=== PATIENT | female | born 1985 | race Caucasian/White ===

== ENCOUNTER 2022-05-19 20:19 | Inpatient (IN) ==
[2022-05-19] MEDS ORDERED: ACETAMINOPHEN 500 MG TAB PO STA (20:49)
[2022-05-19] MEDS ORDERED: SODIUM CHLORIDE 0.9% 1000ML 1,000 ML IV SCH (21:00)
[2022-05-19] MEDS ORDERED: LIDOCAINE 2% JELLY 5 ML TUBE ONE (21:10)
--- NOTE | 2022-05-19 21:11 | Emergency Department Note ---
Impression & Plan Elevated bilirubin, Elevated LFTs, Weakness, Fever, Thrombocytopenia, Breast cancer in female, Hyponatremia ED Provider Note Provider: Jag Peña MD DATE OF SERVICE: 05/19/2022 CHIEF COMPLAINT: Referred by oncology, abnormal labs, cancer HISTORY OF PRESENT ILLNESS: Patient is a 37-year-old female history of breast cancer currently on chemotherapy followed with oncology locally presenting today referred by them. Patient states that she has been having a fairly rough course the last several weeks. Has been having intermittent fevers are sometimes prickly related to the cancer treatments. Has been on a break for a week or 2 with spouse to have the start of another round of chemotherapy treatments today. Went in for blood work at the noted some abnormalities with low platelets, magnesium, and liver function/bilirubin and deferred this. Given his magnesium and Zofran earlier. Had an abdominal ultrasound earlier. Called her oncologist referred here. States she had some intermittent episodes of nausea and vomiting. She states he felt a little bit fuzzy but denies significant chest pain or trouble breathing. Reports some pain at the right lower rib cage of the right upper quadrant of the abdomen. Does express some concern regarding possible hemangioma seen on the ultrasound today if they could resume cancer. Reports some pain at times in the hips and the low back as well. Denies rashes or leg swelling. Denies trauma. REVIEW OF SYSTEMS: A total of 10 review of systems was obtained and negative except as stated above in the HPI. PAST MEDICAL HISTORY: As noted above MEDICATIONS: Reviewed home medication list SOCIAL HISTORY: Lives at home in [place] PHYSICAL EXAM: GENERAL: alert and oriented in no acute distress on stretcher however quite fatigued appearing Head: normocephalic and atraumatic EYES: No injection or discharge but with icterus. NECK: Trachea midline. Supple. ENT: Mucous membranes pink and moist. LUNGS: Airway patent. No retractions. Breath sounds clear HEART: Regular tachycardic rate and rhythm. Right upper chest port in place. ABDOMEN: Soft with some slight right upper quadrant tenderness. No lower abdominal tenderness. No guarding. SKIN: Acyanotic, warm, dry, without rashes but somewhat jaundiced EXTREMITIES: Without swelling, tenderness or deformity NEUROLOGICAL: No focal deficits. No aphasia. No facial droop or slurred speech. Ambulatory. EK bpm sinus tachycardia. No PVC or PAC. No acute ST segment elevation some nonspecific anterior T wave changes. QTc 415. CONTINUOUS CARDIAC MONITORING: was ordered and showed a heart rate of sinus tachycardia to NSR bpm in 80s-120s Patient's laboratory studies and imaging reviewed. Differential includes Infection, dehydration, metabolic abnormality, hyp o/hyperglycemia, electrolyte disturbance, anemia, hypoxia, cardiac sources, intracerebral event, toxicologic, neurologic, as well as other pathologies. IMPRESSION/MEDICAL DECISION MAKING: Patient with complex history of cancer therapy but last several weeks ago with chemo with intermittent fevers and nausea and vomiting with some right upper quadrant chest pain. Discussed with patient at bedside. Discussed with her oncologist upon arrival to findings that she was referred. Repeat blood work and cultures were sent today. Urine sample was sent. Given her fevers and vomiting we will complete a head CT to exclude any obvious central mass on this as well as a CT of the chest to exclude PE or other thoracic pathology as well as a CT abdomen pelvis to evaluate for intra-abdominal, pelvic, or or other metastatic disease or possible etiology for her elevated bilirubin symptoms. Given some Tylenol and IV fluids here initially. Blood work here with some mild hyponatremia of 130. As well as a continued increase in bilirubin to 4.5. AST ALT and alkaline phosphatase continue to trend somewhat higher. Procalcitonin elevated 5.27. Urinalysis not impressive for infection. Question possible infection. COVID-negative. Anaplasmosis smear ordered and not indicated. CT reports were reviewed. Not having symptoms consistent with acute appendicitis. No clear metastatic disease although there is some lymph nodes noted here by radiology reports as below. Will cover empirically with Zosyn at this time. Cannot positively exclude that she could have a biliary infection/cholangitis developing. Given the changes of her labs over the course of the day with her history of cancer with recent chemotherapy, fevers, tachycardia, and elevated procalcitonin feel that further care here at the hospital is indicated. Fever has improved with Tylenol here to 98.1 F orally. Patient and friend updated at bedside. DIAGNOSIS: Breast cancer, elevated bilirubin, hyponatremia, weakness, thrombocytopenia DISPOSITION: Hospitalist will evaluate Patient was agreeable with this plan. Preliminary Findings Only See Final Report For Complete Findings CT ABDOMEN & PELVIS With Contrast: Findings concerning for hepatic steatosis. Splenomegaly. The gallbladder decompressed. The common bile duct is normal. No evidence of pancreatitis. The adrenal glands are unremarkable. No evidence of hydronephrosis or urinary calculi. The appendix is prominent measuring 10.8 mm in maximal diameter with mild inflammation of the surrounding fat. Recommend correlation with right lower quadrant pain. There is a small amount of free fluid in pelvic cul-de-sac. There is a 34 x 32 mm left ovarian cyst. No evidence of free air, free fluid or colitis. No evidence of bony lesions. Prominence bilateral inguinal lymph nodes. No comparisons. Radiologist: Laine Basurto MD Study ready at 00:27 and initial results transmitted at 00:38 Preliminary Findings Only See Final Report For Complete Findings CTA CHEST: No evidence of pulmonary emboli. Prominent bilateral axillary lymph nodes. There is a right IJ approach central venous catheter in place the distal tip in the right atrium. There numerous shotty mediastinal periaortic lymph nodes. The lungs are clear. No evidence of bony lesions. Splenomegaly. Hepatic steatosis. No comparisons. Radiologist: Laine Basurto MD Study ready at 00:37 and initial results transmitted at 00:41 Preliminary Findings Only See Final Report For Complete Findings CT HEAD: No evidence of acute intracranial pathology. Cerebellar tonsillar ectopia. No evidence of bony lesions. Left maxillary sinus retention cyst. No comparisons. Radiologist: Laine Basurto MD Study ready at 00:19 and initial results transmitted at 00:44 Past Med/Surg History Medical History (Updated 05/20/22 @ 01:42 by Jag Peña M.D.) COVID-19 virus infection Family history of breast cancer Lower extremity surgery planned Family History (Updated 10/30/21 @ 15:04 by MAO Garner) Aunt Breast cancer Grandmother (Maternal) Diabetes Grandmother (Paternal) Diabetes Mother Hypertension Father Hypertension Grandfather (Paternal) Myocardial infarction Uncle Alcohol abuse Sister Alcohol abuse Denies family history of Ovarian cancer Prostate cancer Colorectal cancer Social History (Updated 10/30/21 @ 15:06 by MAO Garner) Smoking Status: Never smoker Second Hand Exposure: No; Hx Alcohol Use: Yes Alcohol type: beer Alcohol Intake Frequency: 4 or More x per/Week Hx Substance Use: No marital status: Single Current Living Situation: Alone Current Living Situation Comment: LIVES WITH DOG Feels Safe at Home: Yes Childhood Exposure to Second-Hand Smoke: No caffeine: Yes (COFFEE AND RED BULL ) Dental Care, Regularly: No Physical Activity Frequency: 3-4 Times per Week Physical Activity Frequency Comment: REALLY PHYSICAL Seatbelt Use: always Sunscreen Use: Yes Allergies Allergies Allergy/AdvReac Type Severity Reaction Status Date / Time bee pollen Allergy Intermediate Verified 10/30/21 14:58 cat dander Allergy Mild Verified 10/30/21 14:58 Home Meds Previous Rx's Medication Instructions Recorded epinephrine 0.3 mg/0.3 mL 0.3 mg (0.3 mL) IM Q4H PRN 12/02/21 injection, auto-injector (EpiPen anaphylaxis #1 ea 2-Timmy) Results & Data (ED) Vital Signs Vital Signs - 24 hr 05/19/22 20:27 05/19/22 22:00 05/19/22 22:00 Temperature 39.1 C H Temperature Source Temporal Artery Scan Pulse Rate 120 H Pulse Rate [Apical] 111 H Respiratory Rate 18 19 Respiratory Effort / Characteristics Non-Labored Spontaneous Non-Labored Spontaneous Respiratory Depth Normal Normal Blood Pressure 104/61 Blood Pressure [Right Arm] 109/60 Blood Pressure Mean 75 Blood Pressure Mean [Right Arm] 76 Pulse Oximetry 96 98 97 Oxygen Delivery Method Room Air Room Air Room Air Sepsis Recent Fever Within 48 Hours No Sepsis New/Unexplained Change in Mental Status No Sepsis Action Taken by Nursing Physician Notified 05/20/22 00:19 Temperature Temperature Source Pulse Rate Pulse Rate [Apical] 90 Respiratory Rate 18 Respiratory Effort / Characteristics Non-Labored Spontaneous Respiratory Depth Normal Blood Pressure Blood Pressure [Right Arm] 101/59 L Blood Pressure Mean Blood Pressure Mean [Right Arm] 73 Pulse Oximetry 97 Oxygen Delivery Method Room Air Sepsis Recent Fever Within 48 Hours Sepsis New/Unexplained Change in Mental Status Sepsis Action Taken by Nursing Laboratory Data Result diagrams: 05/19/22 21:50 05/19/22 21:50 Lab Results 05/19/22 05/19/22 05/19/22 Range/Units 00:30 21:11 21:50 WBC 4.82 (4.8-10.8) K/ul RBC 3.15 L (3.93-5.22) M/uL Hgb 10.2 L (12.0-16.0) g/dl Hct 29.2 L (34.1-44.9) % MCV 92.7 (80.0-100.0) fL MCH 32.4 (25.0-34.0) pg MCHC 34.9 (32.0-36.0) g/dL RDW Std Deviation 46.0 (36.4-46.3) fL RDW Coeff of Charly 13.7 (11.5-14.5) % Plt Count 54 L (130-400) K/uL MPV 10.8 (9.4-12.3) fL Immature Gran % (Auto) 3.9 % Neut % (Auto) 79.3 % Lymph % (Auto) 13.9 % Centre % (Auto) 2.7 % Eos % (Auto) 0.0 % Baso % (Auto) 0.2 % Neut # (Auto) 3.82 (1.4-6.5) K/uL Lymph # (Auto) 0.67 L (1.2-3.4) K/uL Centre # (Auto) 0.13 L (0.24-0.82) K/uL Eos # (Auto) 0.00 (0-0.50) K/uL Baso # (Auto) 0.01 (0-0.2) K/uL Immature Gran # (Auto) 0.19 H (0.00-0.02) K/uL Platelet Estimate Decreased L (Normal) PT (9.0-12.0) Seconds INR (0.9-1.1) Sodium (136-145) mmol/L Potassium (3.5-5.1) mmol/L Chloride (98-107) mmol/L Carbon Dioxide (21-32) mmol/L Anion Gap (3-11) BUN (6-23) mg/dl Creatinine (0.6-1.2) mg/dl Est Cr Clr Drug Dosing ml/min Est GFR ( Amer) ml/min Est GFR (Non-Af Amer) ml/min BUN/Creatinine Ratio (10-20) Glucose (70-99(Fasting)) mg/dl Lactate (0.4-2.0) mmol/L Calcium (8.5-10.1) mg/dl Magnesium (1.7-2.4) mg/dl Total Bilirubin (0.2-1.0) mg/dl AST (13-39) U/L ALT (7-52) U/L Alkaline Phosphatase (34-104) U/L Troponin I High Sens (0-14) pg/ml Total Protein (6.0-8.3) gm/dl Albumin (3.4-5.0) gm/dl Globulin (2.5-4.0) gm/dl Albumin/Globulin Ratio (0.9-2) Lipase (11-82) U/L Procalcitonin (0-0.5) ng/ml TSH (0.300-4.500) uIu/ml Free T4 (0.61-1.60) ng/dl Urine Color Dark Yellow Urine Appearance Clear (Clear) Urine pH 5.0 (4.5-7.5) Ur Specific [place] 1.020 (1.000-1.030) Urine Protein Trace H (Negative) Urine Glucose (UA) Negative (Negative) Urine Ketones Trace H (Negative) Urine Blood Negative (Negative) Urine Nitrite Negative (Negative) Urine Bilirubin 1+ H (Negative) Urine Urobilinogen Negative (Negative) Ur Leukocyte Esterase Trace H (Negative) Urine WBC (Auto) 1-5 (0-5) /hpf Urine RBC (Auto) 0-4 (0-4) /hpf U Hyaline Cast (Auto) 1-5 (0-5) /lpf U Epithel Cells (Auto) 20-30 H (0-5) /lpf Urine Bacteria (Auto) Negative (Negative) Anaplasma Smear See Comment Babesia Smear See Comment SARS-CoV-2, RNA, NAAT (NEGATIVE) 05/19/22 05/19/22 05/19/22 Range/Units 21:50 21:50 21:50 WBC (4.8-10.8) K/ul RBC (3.93-5.22) M/uL Hgb (12.0-16.0) g/dl Hct (34.1-44.9) % MCV (80.0-100.0) fL MCH (25.0-34.0) pg MCHC (32.0-36.0) g/dL RDW Std Deviation (36.4-46.3) fL RDW Coeff of Charly (11.5-14.5) % Plt Count (130-400) K/uL MPV (9.4-12.3) fL Immature Gran % (Auto) % Neut % (Auto) % Lymph % (Auto) % Centre % (Auto) % Eos % (Auto) % Baso % (Auto) % Neut # (Auto) (1.4-6.5) K/uL Lymph # (Auto) (1.2-3.4) K/uL Centre # (Auto) (0.24-0.82) K/uL Eos # (Auto) (0-0.50) K/uL Baso # (Auto) (0-0.2) K/uL Immature Gran # (Auto) (0.00-0.02) K/uL Platelet Estimate (Normal) PT 11.7 (9.0-12.0) Seconds INR 1.1 (0.9-1.1) Sodium 130 L (136-145) mmol/L Potassium 3.7 (3.5-5.1) mmol/L Chloride 102 (98-107) mmol/L Carbon Dioxide 21 (21-32) mmol/L Anion Gap 7 (3-11) BUN 9 (6-23) mg/dl Creatinine 0.71 (0.6-1.2) mg/dl Est Cr Clr Drug Dosing 114.1 ml/min Est GFR ( Amer) 126.1 ml/min Est GFR (Non-Af Amer) 108.8 ml/min BUN/Creatinine Ratio 12.7 (10-20) Glucose 96 (70-99(Fasting)) mg/dl Lactate 1.4 (0.4-2.0) mmol/L Calcium 8.3 L (8.5-10.1) mg/dl Magnesium 1.7 (1.7-2.4) mg/dl Total Bilirubin 4.5 H D (0.2-1.0) mg/dl AST 93 H (13-39) U/L ALT 68 H (7-52) U/L Alkaline Phosphatase 221 H (34-104) U/L Troponin I High Sens 14.6 H (0-14) pg/ml Total Protein 5.9 L (6.0-8.3) gm/dl Albumin 3.3 L (3.4-5.0) gm/dl Globulin 2.6 (2.5-4.0) gm/dl Albumin/Globulin Ratio 1.3 (0.9-2) Lipase 14 (11-82) U/L Procalcitonin (0-0.5) ng/ml TSH (0.300-4.500) uIu/ml Free T4 (0.61-1.60) ng/dl Urine Color Urine Appearance (Clear) Urine pH (4.5-7.5) Ur Specific [place] (1.000-1.030) Urine Protein (Negative) Urine Glucose (UA) (Negative) Urine Ketones (Negative) Urine Blood (Negative) Urine Nitrite (Negative) Urine Bilirubin (Negative) Urine Urobilinogen (Negative) Ur Leukocyte Esterase (Negative) Urine WBC (Auto) (0-5) /hpf Urine RBC (Auto) (0-4) /hpf U Hyaline Cast (Auto) (0-5) /lpf U Epithel Cells (Auto) (0-5) /lpf Urine Bacteria (Auto) (Negative) Anaplasma Smear Babesia Smear SARS-CoV-2, RNA, NAAT (NEGATIVE) 05/19/22 05/19/22 05/19/22 Range/Units 21:50 21:50 21:50 WBC (4.8-10.8) K/ul RBC (3.93-5.22) M/uL Hgb (12.0-16.0) g/dl Hct (34.1-44.9) % MCV (80.0-100.0) fL MCH (25.0-34.0) pg MCHC (32.0-36.0) g/dL RDW Std Deviation (36.4-46.3) fL RDW Coeff of Charly (11.5-14.5) % Plt Count (130-400) K/uL MPV (9.4-12.3) fL Immature Gran % (Auto) % Neut % (Auto) % Lymph % (Auto) % Centre % (Auto) % Eos % (Auto) % Baso % (Auto) % Neut # (Auto) (1.4-6.5) K/uL Lymph # (Auto) (1.2-3.4) K/uL Centre # (Auto) (0.24-0.82) K/uL Eos # (Auto) (0-0.50) K/uL Baso # (Auto) (0-0.2) K/uL Immature Gran # (Auto) (0.00-0.02) K/uL Platelet Estimate (Normal) PT (9.0-12.0) Seconds INR (0.9-1.1) Sodium (136-145) mmol/L Potassium (3.5-5.1) mmol/L Chloride (98-107) mmol/L Carbon Dioxide (21-32) mmol/L Anion Gap (3-11) BUN (6-23) mg/dl Creatinine (0.6-1.2) mg/dl Est Cr Clr Drug Dosing ml/min Est GFR ( Amer) ml/min Est GFR (Non-Af Amer) ml/min BUN/Creatinine Ratio (10-20) Glucose (70-99(Fasting)) mg/dl Lactate (0.4-2.0) mmol/L Calcium (8.5-10.1) mg/dl Magnesium (1.7-2.4) mg/dl Total Bilirubin (0.2-1.0) mg/dl AST (13-39) U/L ALT (7-52) U/L Alkaline Phosphatase (34-104) U/L Troponin I High Sens (0-14) pg/ml Total Protein (6.0-8.3) gm/dl Albumin (3.4-5.0) gm/dl Globulin (2.5-4.0) gm/dl Albumin/Globulin Ratio (0.9-2) Lipase (11-82) U/L Procalcitonin 5.27 H (0-0.5) ng/ml TSH 0.254 L (0.300-4.500) uIu/ml Free T4 0.87 (0.61-1.60) ng/dl Urine Color Urine Appearance (Clear) Urine pH (4.5-7.5) Ur Specific [place] (1.000-1.030) Urine Protein (Negative) Urine Glucose (UA) (Negative) Urine Ketones (Negative) Urine Blood (Negative) Urine Nitrite (Negative) Urine Bilirubin (Negative) Urine Urobilinogen (Negative) Ur Leukocyte Esterase (Negative) Urine WBC (Auto) (0-5) /hpf Urine RBC (Auto) (0-4) /hpf U Hyaline Cast (Auto) (0-5) /lpf U Epithel Cells (Auto) (0-5) /lpf Urine Bacteria (Auto) (Negative) Anaplasma Smear Babesia Smear SARS-CoV-2, RNA, NAAT NEGATIVE (NEGATIVE) Administered Medications Discontinued Medications Acetaminophen (Acetaminophen 500 Mg Tab) 1,000 mg PO NOW STA Stop: 05/19/22 20:50 Last Admin: 05/19/22 21:39 Dose: 1,000 mg Documented By: BEVERLEY Sodium Chloride (Nss 1000ml) 1,000 mls @ 999 mls/hr IV .Q1H1M OCTAVIO Stop: 05/19/22 22:00 Last Infusion: 05/19/22 22:59 Dose: 0 mls/hr Documented By: Admin: 05/19/22 21:40 Dose: 999 mls/hr Documented By: BEVERLEY Lactated Ringer's (Lr) 1,000 mls @ 999 mls/hr IV .Q1H1M ONE Stop: 05/20/22 00:53 Last Admin: 05/20/22 00:19 Dose: 999 mls/hr Documented By: JOANN Sodium Chloride (Nss) 500 mls @ 999 mls/hr IV .Q31M ONE Stop: 05/20/22 00:23 Last Admin: 05/20/22 00:19 Dose: 999 mls/hr Documented By: JOANN Piperacillin Sod/Tazobactam Sod (Zosyn) 4.5 gm in 120 mls @ 240 mls/hr IV NOW ONE Stop: 05/20/22 01:06 Last Admin: 05/20/22 01:15 Dose: 240 mls/hr Documented By: JOANN Lidocaine HCl (Lidocaine 2% Jelly 5 Ml Tube) Confirm Administered Dose 5 ml .ROUTE .STK-MED ONE Stop: 05/19/22 21:11 Last Admin: 05/19/22 21:17 Dose: 5 ml Documented By: TAMMY Discharge Plan Visit Data Chief Complaint: Abdominal Pain Stated Complaint: REF BY , ABDOMINAL PAIN ED Provider: Jag Peña Discharge Problem: Elevated bilirubin, Elevated LFTs, Weakness, Fever, Thrombocytopenia, Breast cancer in female, Hyponatremia Patient Disposition: Being Evaluated by Hospitalist Forms Stand Alone Forms: [facility] Prescriptions Prescriptions: No Action epinephrine [EpiPen 2-Timmy] 0.3 mg/0.3 mL auto-injector 0.3 mg IM Q4H PRN (Reason: anaphylaxis) Qty: 1 3RF Referrals Referrals: Madeline Lujan MD [Primary Care Provider] -
[2022-05-19 22:30] LABS: INR 1.1 (0.9-1.1); Prothrombin Time 11.7 Seconds (9.0-12.0)
[2022-05-19 22:36] LABS: Appearance Urine Clear (Clear); Bacteria Urine Automated Negative (Negative); Blood Urine Negative (Negative); Color Urine Dark Yellow; Epithelial Cell Urine Auto 20-30 /lpf (0-5); Glucose Urine UA Negative (Negative); Ketones Urine Trace (Negative); Leukocyte Esterase Urine Trace (Negative); Nitrite Urine Negative (Negative); Protein Urine Trace (Negative); RBC Urine Automated 0-4 /hpf (0-4); Urobilinogen Urine Negative (Negative)
[2022-05-19 22:38] LABS: Bilirubin Urine 1+ (Negative)
[2022-05-19 22:42] LABS: Thyroid Stimulating Hormone 0.254 uIu/ml (0.300-4.500)
[2022-05-19 22:49] LABS: Albumin Globulin Ratio 1.3 (0.9-2); Albumin Level 3.3 gm/dl (3.4-5.0); BUN Creatinine Ratio 12.7 (10-20); Bilirubin,Total 4.5 mg/dl (0.2-1.0); Calcium 8.3 mg/dl (8.5-10.1); Creatinine Clr Calc Pharmacy 114.1 ml/min; Est GFR (African American) 126.1 ml/min; Est GFR (Non-African American) 108.8 ml/min; Globulin 2.6 gm/dl (2.5-4.0); Magnesium 1.7 mg/dl (1.7-2.4); Potassium 3.7 mmol/L (3.5-5.1); Total Protein 5.9 gm/dl (6.0-8.3); Troponin I High Sensitivity 14.6 pg/ml (0-14)
[2022-05-19 23:17] LABS: Basophils # (auto) 0.01 K/uL (0-0.2); Basophils % (auto) 0.2 %; Hematocrit (blood only) 29.2 % (34.1-44.9); Hemoglobin 10.2 g/dl (12.0-16.0); Immature Granulocytes # (auto) 0.19 K/uL (0.00-0.02); Immature Granulocytes % (auto) 3.9 %; Lymphocytes # (auto) 0.67 K/uL (1.2-3.4); Lymphocytes % (auto) 13.9 %; Mean Corpuscular Hemoglobin 32.4 pg (25.0-34.0); Mean Corpuscular Hgb Conc 34.9 g/dL (32.0-36.0); Mean Corpuscular Volume 92.7 fL (80.0-100.0); Mean Platelet Volume 10.8 fL (9.4-12.3); Monocytes # (auto) 0.13 K/uL (0.24-0.82); Monocytes % (auto) 2.7 %; Neutrophils # (auto) 3.82 K/uL (1.4-6.5); Neutrophils % (auto) 79.3 %; Platelet Count 54 K/uL (130-400); Platelet Estimate Decreased (Normal); RDW Coefficient of Variation 13.7 % (11.5-14.5); Red Blood Count 3.15 M/uL (3.93-5.22); White Blood Count 4.82 K/ul (4.8-10.8)
[2022-05-19 23:20] LABS: T4 Free Thyroxine 0.87 ng/dl (0.61-1.60)
[2022-05-19] MEDS ORDERED: OPTIRAY 300 500mL IV ONE (23:41)
[2022-05-19] MEDS ORDERED: SODIUM CHLORIDE 0.9% 500 ML IV ONE (23:53)
[2022-05-19] MEDS ORDERED: LACTATED RINGER'S 1,000 ML IV ONE (23:53)
[2022-05-20] MEDS ORDERED: PIPERACILLIN/TAZOBACTAM 4.5 GM/120 ML BAG IV ONE (00:37)
--- NOTE | 2022-05-20 02:44 | Surgery Consultation ---
Date of Consultation May 20, 2022 Assessment & Plan (1) Elevated bilirubin: (2) Elevated LFTs: (3) Abnormal CT scan: I discussed the case with the admitting hospitalist. At the present time it does not appear that the patient is suffering clinically from appendicitis as she has absolutely no pain in the right lower quadrant The hospitalist service is planning on admitting the patient for treatment with IV antibiotics. She is already received intravenous Zosyn Plans are in place for administration of IV fluids Hospitalist team is planning on repeating the patient's LFTs and if they continue to trend in an abnormal direction they we will consider ordering either a HIDA scan or an MRCP for further evaluation I recommended to the patient that she remain n.p.o. for the present time, but consideration given to advancing her diet once repeat laboratories are done and if she continues to have the absence of abdominal pain Supervising Physician Co-Signing Physician Notes Dr. Dumont with assessment above Findings on CT scan noted with contracted gallbladder and no evidence of stones or sludge. She does have a large appendix With minimal inflammatory findings and absolutely no abdominal pain to exam or as a complaint From a surgical standpoint her major risk factor would be bleeding because of her thrombocytopenia even if she received platelets This could be a life-threatening problem and therefore I feel we should treat her medically for now. I believe has been asked to see her We may also consider ID consult History of Present Illness Reason for Consultation: Abnormal abdominal CT scan, questionable appendicitis History of Present Illness This is a 37-year-old female who has triple negative breast cancer and is currently undergoing chemotherapy. Patient notes that her most recent chemotherapy was approximately 2 weeks ago. She notes that she was to receive chemotherapy beginning 2 days ago however patient was noted to have some abnormal laboratories and therefore her chemotherapy was delayed. Patient was seen by her oncology team earlier today where she had labs including a CBC were white blood cell count was normal. Her hemoglobin and hematocrit were 11.1 and 32.0. Her platelet count was 82,000. Chemistry profile that showed normal s odium and potassium. Her BUN and creatinine were not elevated. Patient was noted to have a low magnesium of 1.5. Her total bilirubin was 2.9. Her AST and ALT were elevated at 40 and 61 respectively with an elevated alkaline phosphatase of 200. Because of her elevated LFTs the patient was referred for a gallbladder ultrasound that showed no evidence of gallstones or cholecystitis however the patient was noted to have concern for liver hemangiomas. She was ultimately referred to the emergency department because of her abnormal laboratories. In the emergency department the patient had labs and imaging which I independently reviewed. CT scan of the abdomen pelvis showed findings concerning for hepatic steatosis. The gallbladder was noted to be decompressed with a normal caliber common bile duct. There is no evidence of pancreatitis on the study. There is no evidence of kidney stones or hydronephrosis. The appendix was prominent with approximately 10.8 mm diameter. There is some mild inflammation of the surrounding fat. No evidence of free air or colitis. A CT scan of the head showed no evidence of acute intracranial abnormality. CT scan of the chest showed no evidence of bony lesions. There is no evidence of pulmonary emboli. Labs include a CBC her white blood cell count was within the normal range. There is no noted neutropenia. Hemoglobin and hematocrit were 1 0.2 and 29.2. Her platelet count was 54,000. Her coagulation studies were normal. Chemistry profile showed sodium is 130. Potassium, BUN, and creatinine were normal. She did have an elevated total bilirubin of 4.5. Her AST and ALT were elevated at 93 and 68 respectively and her alkaline phosphatase was elevated at 221. There is no elevation of patient's lipase. A procalcitonin level was elevated at 5.2. Urinalysis was not indicative of infection. A COVID test was noted to be negative. I evaluated the patient in the emergency department. The patient notes that she has been having fevers as high as 103 at home. Approximately 5 days ago the patient did have some nausea and vomiting but this is resolved. She also reports some intermittent right upper quadrant pain without modifying factors over the past week. She specifically denies any diarrhea. She also specifically denies any right lower quadrant pain. She denies any decreased appetite. She denies any sore throat or dysuria. Patient denies any prior abdominal surgeries. She notes her most recent oral intake was approximately 1 hour ago at which time she ate a turkey sandwich. At the time of my interview the patient was resting comfortably in bed and she was in no distress. Allergies Allergy/AdvReac Type Severity Reaction Status Date / Time bee pollen Allergy Intermediate Verified 10/30/21 14:58 cat dander Allergy Mild Verified 10/30/21 14:58 Home Medications Medication Instructions Recorded Confirmed Type epinephrine 0.3 mg/0.3 mL 0.3 mg (0.3 mL) IM Q4H PRN 12/02/21 12/02/21 Rx injection, auto-injector (EpiPen anaphylaxis #1 ea 2-Timmy) Patient History Medical History COVID-19 virus infection Family history of breast cancer Lower extremity surgery planned Family History Aunt Breast cancer Grandmother (Maternal) Diabetes Grandmother (Paternal) Diabetes Mother Hypertension Father Hypertension Grandfather (Paternal) Myocardial infarction Uncle Alcohol abuse Sister Alcohol abuse Denies family history of Ovarian cancer Prostate cancer Colorectal cancer Social History Smoking Status: Never smoker Second Hand Exposure: No; Hx Alcohol Use: Yes Alcohol type: beer Alcohol Intake Frequency: 4 or More x per/Week Hx Substance Use: No marital status: Single Current Living Situation: Alone Current Living Situation Comment: LIVES WITH DOG Feels Safe at Home: Yes Childhood Exposure to Second-Hand Smoke: No caffeine: Yes (COFFEE AND RED BULL ) Dental Care, Regularly: No Physical Activity Frequency: 3-4 Times per Week Physical Activity Frequency Comment: REALLY PHYSICAL Seatbelt Use: always Sunscreen Use: Yes Review of Systems Constitutional: + fever Eyes: no eye pain Ear, Nose, Mouth, Throat: no ear pain Respiratory: no cough and no dyspnea Cardiovascular: no chest pain Gastrointestinal: as per Subjective / HPI, + abdominal pain (Mild pain in the right upper quadrant; no right lower quadrant pain), + nausea and + vomiting; no diarrhea/loose stools Genitourinary: no dysuria Musculoskeletal: + back pain Integumentary: no rash Neurologic: no localized weakness Physical Exam Physical Exam: A right sided a-port is noted to be in place. There is no inflammation noted at the site of her port. Constitutional: WD/WN, vitals as above Eyes: no conjunctival abnormality ENMT: Ears: no hearing impairment and no external ear abnormality No noted inflammation of the oral mucosa Neck: trachea midline Respiratory: normal respiratory effort, lungs clear to auscultation Cardiovascular: Rate/Rhythm: regular rate and regular rhythm Vessels: dorsalis pedis pulses present Gastrointestinal (Abdomen): Abdomen is soft, nonrigid, nondistended. There is no pain with palpation of the abdomen at the time of my exam, specifically no pain in the right upper quadrant and no pain in the right lower quadrant over McBurney's point. There is no rebound tenderness or guarding Musculoskeletal: No gross orthopedic abnormalities. No calf tenderness Skin: no rashes Neurologic: moves all extremities Psychiatric: A+Ox3, euthymic affect Results & Data ([facility]) Vital Signs (Past 12 Hours) Vital Signs Temp Pulse Pulse Resp BP BP Pulse Ox 05/20/22 00:19 90 18 101/59 L 97 05/19/22 22:00 97 05/19/22 22:00 111 H 19 109/60 98 05/19/22 20:27 39.1 C H 120 H 18 104/61 96 O2 Del Method 05/20/22 00:19 Room Air 05/19/22 22:00 Room Air 05/19/22 22:00 Room Air 05/19/22 20:27 Room Air PG Care Time/CCT Total # of Minutes Spent Total Time Spent with Patient: Total time spent is greater than 50% in coordination of care (as documented) at patient's floor/unit and/or counseling patient: Coding Level of Care Code 43208 Inpt Consult Level 5 Diagnoses Elevated bilirubin R17 Elevated LFTs R79.[address] scan R93.89
--- NOTE | 2022-05-20 02:57 | History & Physical Report ---
Date of Service May 20, 2022 Assessment & Plan (1) Febrile illness, acute: Plan: Acute febrile illness- Temperature 39.1 NPO except ice chips Relatively immunocompromised due to treatments Follow blood culture and sensitivity Continue Zosyn 4.5 g IV every 8 hours begun in the ED Serial CBC with differential and chemistry profile Ask surgery to assess inflammation around the appendix Order MRCP to follow-up abnormal CT scan and abnormal liver tests Order HIDA scan to further assess gallbladder function (2) Elevated LFTs: Plan: Follow laboratory serially as noted (3) Elevated troponin: Plan: Highly sensitive troponin 14.6 upon admission Repeat now (4) Breast cancer in female: Plan: Consult oncology Dr. Long (5) Weakness: Plan: Generalized weakness noted over the past weeks (6) Hyponatremia: Plan: Sodium 130 on admission labs Status post 2 L IV fluids in the ED NSS + KCl 20 mEq at 80 mils per hour History of Present Illness Chief Complaint: The patient is referred to the emergency department from oncology office today with complaint of intermittent fevers and abnormal lab work. Primary Care Provider: Madeline Lujan MD The patient is a 37-year-old female with a past medical history including metastatic breast cancer, thrombocytopenia, history of COVID-19 viral infection, infiltrating ductal adenocarcinoma, undergoing chemotherapy. She presents to the emergency department signs and symptoms as noted above. Upon arrival patient was noted to be febrile, with temperature 39.1. Significant abnormal laboratories: Hemoglobin 10.2, hematocrit 29.2, sodium 130, total bilirubin 4.5, AST 93, ALT 68, alkaline phosphatase 221, albumin 3.3, Pro- Armand 5.27, TSH 0.254 and troponin 14.6. COVID-19 testing was negative. Anaplasmosis and babesiosis smears are both negative, with antibodies pending. CTA chest PE protocol negative. CT head without contrast negative CT scan abdomen and pelvis with contrast: Hepatic steatosis. Splenomegaly. Decompressed gallbladder. The appendix is prominent measuring 10.8 mm in maximal diameter with mild inflammation of surrounding fat, recommending correlation with right lower quadrant pain. There is a small amount of free f luid in the pelvic cul-de-sac. 34 x 32 mm left ovarian cyst. Prominent bilateral inguinal lymph nodes From the ED, the patient has received the following: Normal saline 1 L, Tylenol 1 g p.o., LR 1 L, NSS 500 mils, and Zosyn 4.5 g IV Allergies Allergy/AdvReac Type Severity Reaction Status Date / Time bee pollen Allergy Intermediate Verified 10/30/21 14:58 cat dander Allergy Mild Verified 10/30/21 14:58 Home Medications Medication Instructions Recorded Confirmed Type epinephrine 0.3 mg/0.3 mL 0.3 mg (0.3 mL) IM Q4H PRN 12/02/21 12/02/21 Rx injection, auto-injector (EpiPen anaphylaxis #1 ea 2-Timmy) Past Med/Surg History Medical History COVID-19 virus infection Family history of breast cancer Lower extremity surgery planned Family History Aunt Breast cancer Grandmother (Maternal) Diabetes Grandmother (Paternal) Diabetes Mother Hypertension Father Hypertension Grandfather (Paternal) Myocardial infarction Uncle Alcohol abuse Sister Alcohol abuse Denies family history of Ovarian cancer Prostate cancer Colorectal cancer Social History Smoking Status: Never smoker Second Hand Exposure: No; Hx Alcohol Use: Yes Alcohol type: beer Alcohol Intake Frequency: 4 or More x per/Week Hx Substance Use: No marital status: Single Current Living Situation: Alone Current Living Situation Comment: LIVES WITH DOG Feels Safe at Home: Yes Childhood Exposure to Second-Hand Smoke: No caffeine: Yes (COFFEE AND RED BULL ) Dental Care, Regularly: No Physical Activity Frequency: 3-4 Times per Week Physical Activity Frequency Comment: REALLY PHYSICAL Seatbelt Use: always Sunscreen Use: Yes Review of Systems Review of Systems: The patient denies chest pain, palpitations, shortness of breath, dyspnea on exertion, cough, lower extremity swelling, sore throat, fevers, chills, sweats, vomiting, diarrhea , constipation, blood in urine or stool, dysuria, urinary frequency or urgency, lightheadedness, dizziness, headache, memory loss, loss of consciousness, rash, abnormal bruising or bleeding, imbalance, focal weakness, numbness or tingling in arms or legs, neck pain, or night sweats. The review of systems is otherwise negative other than for that already noted above, and at least 10 systems have been reviewed. Physical Exam Physical Exam: The patient is awake, alert and oriented 3, well developed and well nourished, normocephalic and atraumatic, lying in bed and in no acute distress. HEENT--PERRL, EOMI, mucous membranes and oropharynx dry. Neck--supple. No JVD. No bruits. Thyroid normal, trachea midline, no adenopathy. Heart--normal S1 and S2. No murmurs, rubs or gallops. Lungs--clear bilaterally, no respiratory distress, no accessory muscle use. Abdomen--normal bowel sounds and soft. Nontender. Nondistended. Extremities--no cyanosis or clubbing. No edema. Dermatologic--normal skin turgor, normal color, no abnormal lymph nodes, no rash. Neurologic--cranial nerves II through XII grossly intact. Rheumatologic--normal range of motion. Psychiatric--normal affect. Results & Data Results & Data ([facility]) Vital Signs (Past 12 Hours) Vital Signs Temp Pulse Pulse Resp BP BP Pulse Ox 05/20/22 00:19 90 18 101/59 L 97 05/19/22 22:00 97 05/19/22 22:00 111 H 19 109/60 98 05/19/22 20:27 39.1 C H 120 H 18 104/61 96 O2 Del Method 05/20/22 00:19 Room Air 05/19/22 22:00 Room Air 05/19/22 22:00 Room Air 05/19/22 20:27 Room Air Laboratory Results Laboratory Results WBC 4.82 K/ul (4.8-10.8) 05/19/22 21:50 RBC 3.15 M/uL (3.93-5.22) L 05/19/22 21:50 Hgb 10.2 g/dl (12.0-16.0) L 05/19/22 21:50 Hct 29.2 % (34.1-44.9) L 05/19/22 21:50 MCV 92.7 fL (80.0-100.0) 05/19/22 21:50 MCH 32.4 pg (25.0-34.0) 05/19/22 21:50 MCHC 34.9 g/dL (32.0-36.0) 05/19/22 21:50 RDW Std Deviation 46.0 fL (36.4-46.3) 05/19/22 21:50 RDW Coeff of Charly 13.7 % (11.5-14.5) 05/19/22 21:50 Plt Count 54 K/uL (130-400) L 05/19/22 21:50 MPV 10.8 fL (9.4-12.3) 05/19/22 21:50 Immature Gran % (Auto) 3.9 % 05/19/22 21:50 Neut % (Auto) 79.3 % 05/19/22 21:50 Lymph % (Auto) 13.9 % 05/19/22 21:50 [place] % (Auto) 2.7 % 05/19/22 21:50 Eos % (Auto) 0.0 % 05/19/22 21:50 Baso % (Auto) 0.2 % 05/19/22 21:50 Neut # (Auto) 3.82 K/uL (1.4-6.5) 05/19/22 21:50 Lymph # (Auto) 0.67 K/uL (1.2-3.4) L 05/19/22 21:50 [place] # (Auto) 0.13 K/uL (0.24-0.82) L 05/19/22 21:50 Eos # (Auto) 0.00 K/uL (0-0.50) 05/19/22 21:50 Baso # (Auto) 0.01 K/uL (0-0.2) 05/19/22 21:50 Immature Gran # (Auto) 0.19 K/uL (0.00-0.02) H 05/19/22 21:50 Platelet Estimate Decreased (Normal) L 05/19/22 21:50 PT 11.7 Seconds (9.0-12.0) 05/19/22 21:50 INR 1.1 (0.9-1.1) 05/19/22 21:50 Sodium 130 mmol/L (136-145) L 05/19/22 21:50 Potassium 3.7 mmol/L (3.5-5.1) 05/19/22 21:50 Chloride 102 mmol/L (98-107) 05/19/22 21:50 Carbon Dioxide 21 mmol/L (21-32) 05/19/22 21:50 Anion Gap 7 (3-11) 05/19/22 21:50 BUN 9 mg/dl (6-23) 05/19/22 21:50 Creatinine 0.71 mg/dl (0.6-1.2) 05/19/22 21:50 Est Cr Clr Drug Dosing 114.1 ml/min 05/19/22 21:50 Est GFR ( Amer) 126.1 ml/min 05/19/22 21:50 Est GFR (Non-Af Amer) 108.8 ml/min 05/19/22 21:50 BUN/Creatinine Ratio 12.7 (10-20) 05/19/22 21:50 Glucose 96 mg/dl (70-99(Fasting)) 05/19/22 21:50 Lactate 1.4 mmol/L (0.4-2.0) 05/19/22 21:50 Calcium 8.3 mg/dl (8.5-10.1) L 05/19/22 21:50 Magnesium 1.7 mg/dl (1.7-2.4) 05/19/22 21:50 Total Bilirubin 4.5 mg/dl (0.2-1.0) H D 05/19/22 21:50 AST 93 U/L (13-39) H 05/19/22 21:50 ALT 68 U/L (7-52) H 05/19/22 21:50 Alkaline Phosphatase 221 U/L (34-104) H 05/19/22 21:50 Troponin I High Sens 14.6 pg/ml (0-14) H 05/19/22 21:50 Total Protein 5.9 gm/dl (6.0-8.3) L 05/19/22 21:50 Albumin 3.3 gm/dl (3.4-5.0) L 05/19/22 21:50 Globulin 2.6 gm/dl (2.5-4.0) 05/19/22 21:50 Albumin/Globulin Ratio 1.3 (0.9-2) 05/19/22 21:50 Lipase 14 U/L (11-82) 05/19/22 21:50 Procalcitonin 5.27 ng/ml (0-0.5) H 05/19/22 21:50 TSH 0.254 uIu/ml (0.300-4.500) L 05/19/22 21:50 Free T4 0.87 ng/dl (0.61-1.60) 05/19/22 21:50 Urine Color Dark Yellow 05/19/22 21:11 Urine Appearance Clear (Clear) 05/19/22 21:11 Urine pH 5.0 (4.5-7.5) 05/19/22 21:11 Ur Specific [place] 1.020 (1.000-1.030) 05/19/22 21:11 Urine Protein Trace (Negative) H 05/19/22 21:11 Urine Glucose (UA) Negative (Negative) 05/19/22 21:11 Urine Ketones Trace (Negative) H 05/19/22 21:11 Urine Blood Negative (Negative) 05/19/22 21:11 Urine Nitrite Negative (Negative) 05/19/22 21:11 Urine Bilirubin 1+ (Negative) H 05/19/22 21:11 Urine Urobilinogen Negative (Negative) 05/19/22 21:11 Ur Leukocyte Esterase Trace (Negative) H 05/19/22 21:11 Urine WBC (Auto) 1-5 /hpf (0-5) 05/19/22 21:11 Urine RBC (Auto) 0-4 /hpf (0-4) 05/19/22 21:11 U Hyaline Cast (Auto) 1-5 /lpf (0-5) 05/19/22 21:11 U Epithel Cells (Auto) 20-30 /lpf (0-5) H 05/19/22 21:11 Urine Bacteria (Auto) Negative (Negative) 05/19/22 21:11 Anaplasma Smear See Comment 05/19/22 00:30 Babesia Smear See Comment 05/19/22 00:30 SARS-CoV-2, RNA, NAAT NEGATIVE (NEGATIVE) 05/19/22 21:50 Diagnostic Findings [facility] Patient: ALLI CORONA (Female) : 85 Status: ER Date: 05/20/22 00:14 Room #: History: breast ca fever n/v Slices: 530 Priors: Tech: Vamsi Marsh @ [phone] Exams: CTA CHEST Contrast: IV Amt: 121 ml optiray Accession Numbers: [id number] Referring Physician: DARYN LONG Preliminary Findings Only See Final Report For Complete Findings CTA CHEST: No evidence of pulmonary emboli. Prominent bilateral axillary lymph nodes. There is a right IJ approach central venous catheter in place the distal tip in the right atrium. There numerous shotty mediastinal periaortic lymph nodes. The lungs are clear. No evidence of bony lesions. Splenomegaly. Hepatic steatosis. No comparisons. Radiologist: Laine Basurto MD Study ready at 00:37 and initial results transmitted at 00:41 *This report constitutes a preliminary interpretation only. Non-acute findings felt to be unrelated to the clinical presentation may not be discussed in this report. The study will be interpreted and a final report will be generated by the local Radiologist the following shift. To reach the hospital radiology department call [phone]. [facility] Patient: ALLI CORONA (Female) : 85 Status: ER Date: 05/20/22 00:15 Room #: History: breast ca fever n/v appen pres Slices: 954 Priors: Tech: Vamsi Marsh @ [phone] Exams: CT ABDOMEN & PELVIS With Contrast Contrast: IV Amt: 121 ml optiray Accession Numbers: [id number] Referring Physician: DARYN LONG Preliminary Findings Only See Final Report For Complete Findings CT ABDOMEN & PELVIS With Contrast: Findings concerning for hepatic steatosis. Splenomegaly. The gallbladder decompressed. The common bile duct is normal. No evidence of pancreatitis. The adrenal glands are unremarkable. No evidence of hydronephrosis or urinary calculi. The appendix is prominent measuring 10.8 mm in maximal diameter with mild inflammation of the surrounding fat. Recommend correlation with right lower quadrant pain. There is a small amount of free fluid in pelvic cul-de-sac. There is a 34 x 32 mm left ovarian cyst. No evidence of free air, free fluid or colitis. No evidence of bony lesions. Prominence bilateral inguinal lymph nodes. No comparisons. Radiologist: Laine Basurto MD Study ready at 00:27 and initial results transmitted at 00:38 *This report constitutes a preliminary interpretation only. Non-acute findings felt to be unrelated to the clinical presentation may not be discussed in this report. The study will be interpreted and a final report will be generated by the local Radiologist the following shift. To reach the hospital radiology department call [phone]. [facility] Patient: ALLI CORONA (Female) : 85 Status: ER Date: 05/20/22 00:17 Room #: History: breast ca fever n/v Slices: 67 Priors: Tech: Vamsi Marsh @ [phone] Exams: CT HEAD Contrast: Accession Numbers: [id number] Referring Physician: DARYN LONG Preliminary Findings Only See Final Report For Complete Findings CT HEAD: No evidence of acute intracranial pathology. Cerebellar tonsillar ectopia. No evidence of bony lesions. Left maxillary sinus retention cyst. No comparisons. Radiologist: Laine Basurto MD Study ready at 00:19 and initial results transmitted at 00:44 *This report constitutes a preliminary interpretation only. Non-acute findings felt to be unrelated to the clinical presentation may not be discussed in this report. The study will be interpreted and a final report will be generated by the local Radiologist the following shift. To reach the [facility] radiology department call [phone]. If a discrepancy is found between the preliminary and final interpretations of this study, please notify us via our Client Portal at [email or web address] under [email or web address]. You can also fax this report with a description of the discrepancy, or include the final report, to our daytime fax number [phone]. If faxing, please indicate the severity of discrepancy using one of the following categories: [ ] 1 - Agree/Informational [ ] 2 - Unlikely to Affect Management [ ] 3 - Possible Eventual Change of Management [ ] 4 - Probable Immediate Change of Management Code Status & VTE Plan Code Status Full code VTE Prophylaxis Plan VTE Prophylaxis will be ordered: Yes PG Care Time/CCT Total # of Minutes Spent Total Time Spent with Patient: Total time spent is greater than 50% in coordination of care (as documented) at patient's floor/unit and/or counseling patient: Coding Level of Care Code 12472 Initial Inpt Care Lvl 3 Diagnoses Febrile illness, acute R50.9 Elevated LFTs R79.89 Elevated troponin R77.8 Breast cancer in female C50.912; Z17.1 Breast location: unspecified site of breast Estrogen receptor status: negative Laterality: left Weakness R53.1 Hyponatremia E87.1 (1) Breast cancer in female Breast location: unspecified site of breast Estrogen receptor status: negative Laterality: left Qualified Code(s): C50.912 - Malignant neoplasm of unspecified site of left female breast; Z17.1 - Estrogen receptor negative status [ER-]
[2022-05-20] MEDS ORDERED: ONDANSETRON INJ 2 MG/ML 2 ML VIAL IV PRN (04:45)
[2022-05-20] MEDS: PIPERACILLIN/TAZOBACTAM 3.375 GM in DEXTROSE 5% 100 ML IV SCH ×3 (06:40→22:35)
[2022-05-20] MEDS ORDERED: PIPERACILLIN/TAZOBACTAM 4.5 GM in DEXTROSE 5% 100 ML IV SCH (08:00)
--- NOTE | 2022-05-20 08:29 | CT Scan Report ---
CT OF THE HEAD WITHOUT CONTRAST CLINICAL HISTORY: cancer, fevers, nausea, weak COMPARISON STUDY: PET/CT January 13, 2022. TECHNIQUE: Helical axial images of the head were obtained without IV contrast. Automated exposure con trol was utilized for the study. A dose lowering technique was utilized adhering to the principles o f ALARA. FINDINGS: No acute intracranial hemorrhage, midline shift or mass effect is present. The ventricular system is unremarkable. The basal cisterns are patent. No extra-axial collections are present. There are no findings to suggest acute dural sinus thrombosis or acute territorial infarct. No significant calvarial abnormalities are present. Mucous retention cyst within the left maxillary sinus is partial ly imaged. There is mild ethmoid sinus mucosal thickening. IMPRESSION: No acute intracranial findings. ACT 112: Negative or not required by law. Electronically signed by: Dennis Lopez M.D. 05/20/2022 8:27 AM
--- NOTE | 2022-05-20 09:54 | CT Scan Report ---
CT ANGIOGRAM OF THE CHEST; CT SCAN OF THE ABDOMEN AND PELVIS WITH IV CONTRAST CLINICAL HISTORY: Atypical chest pain. Right upper quadrant abdominal pain. Breast cancer. Fever. COMPARISON STUDY: Chest x-ray dated 02/19/2022. PET/CT dated 01/13/2022. TECHNIQUE: Following the IV administration of 121 of Optiray 300, CT angiogram of the chest is perfor med from the upper abdomen to the thoracic inlet utilizing the pulmonary embolus protocol. Images are reviewed in the axial, sagittal, coronal planes. 3-D MIPS images are created and assessed. Subsequen tly, CT scan of the abdomen and pelvis was performed from the lung bases to the proximal femora. Imag es are reviewed in the axial, sagittal, and coronal planes. IV contrast was administered without comp lication. A dose lowering technique was utilized adhering to the principles of ALARA. CT DOSE: 1704.37 mGy.cm FINDINGS: CHEST: Thyroid: Imaged portions of the thyroid gland are normal in size and attenuation. Thoracic aorta: The thoracic aorta is normal in caliber and demonstrates standard 3-vessel arch anato my. No dissection is seen. Pulmonary vasculature: The pulmonary trunk is normal in caliber. There are no filling defects identif ied in the main, lobar, or segmental pulmonary arteries to indicate pulmonary embolus. Heart: The right internal jugular central venous infusion port is in place. The heart is normal in si ze and without pericardial effusion. Lungs and pleural spaces: There is no airspace consolidation or pleural effusion. Dependent atelectas is is noted at the lung bases. The trachea and central airways are clear. Mediastinum: There is no mediastinal lymphadenopathy. Myah: Clear. Axillae: Shotty axillary lymph nodes are not pathologically enlarged by size criteria. Bony thorax: No lytic or blastic lesions are identified. ABDOMEN AND PELVIS: Liver: The contrast-enhanced liver is normal in size and contour. Hepatic attenuation is mildly dimin ished suggesting steatosis. There is no intrahepatic or ductal dilatation. The hepatic veins and port al veins are patent. Gallbladder: Unremarkable. Spleen: The spleen is mildly enlarged measuring 13.7 cm in length. Pancreas: Unremarkable. Adrenal glands: Unremarkable. Kidneys: The contrast enhanced kidneys are normal in size and without hydronephrosis. The kidneys enh ance symmetrically. Abdominal vasculature: The abdominal aorta is normal in course and caliber. Stomach and bowel: There is a small hiatal hernia. No bowel obstruction is seen. The appendix is mild ly dilated measuring up to 7 mm. The appendiceal wall appears mildly thickened. No significant surrou nding inflammation is seen. This is best seen on image #[id number]. Peritoneum: There is no intraperitoneal free air or abdominal ascites. There is a small fat-containin g umbilical hernia. Lymphadenopathy: None. Pelvic viscera: The bladder, uterus, and adnexa are normal as visualized noting a 3.4 cm dominant fol licle in the left ovary. There is a small volume of free fluid in the cul-de-sac. Skeletal structures: No lytic or blastic lesions are seen. IMPRESSION: 1. There is no evidence of pulmonary embolus in the main, lobar, or segmental pulmonary arteries. 2. There is no airspace consolidation or pleural effusion. 3. The appendix is mildly dilated and mildly thick-walled. No significant surrounding inflammation is identified. Findings are of low suspicion for acute appendicitis; however, this is not completely ex cluded. If symptoms worsen, localize to the right lower quadrant, or if there is clinical concern for appendicitis a repeat examination with enteric contrast should be considered. 4. Mild splenomegaly. 5. A small volume of free fluid in the cul-de-sac is nonspecific and likely within physiologic limits . 6. There is no evidence of metastatic disease in the chest, abdomen, or pelvis. 7. Additional findings as above. ACT 112: Negative or not required by law. Electronically signed by: Rosas May M.D. 05/20/2022 9:51 AM
[2022-05-20 09:55] LABS: Hematocrit (blood only) 29.2 % (34.1-44.9); Mean Corpuscular Hemoglobin 32.6 pg (25.0-34.0); Mean Corpuscular Hgb Conc 34.2 g/dL (32.0-36.0); Mean Corpuscular Volume 95.1 fL (80.0-100.0); Mean Platelet Volume 11.3 fL (9.4-12.3); Platelet Count 46 K/uL (130-400); RDW Coefficient of Variation 14.1 % (11.5-14.5); Red Blood Count 3.07 M/uL (3.93-5.22); White Blood Count 3.22 K/ul (4.8-10.8)
--- NOTE | 2022-05-20 09:59 | Hospitalist Progress Note ---
Date of Service May 20, 2022 Assessment & Plan (1) Febrile illness, acute: Plan: Acute Febrile Illness (Tmax 39.1C) in setting of immunocompromised patient - Patient presented from oncology office with fever and abnormal labs * Outpatient Labs: HgB 10.2, Hct 29.2, Na 130, TBili 4.5, AST 93, ALT 68, AlkPhos 221, Albumin 3.3, Pro-Armand 5.27, TSH 0.25 * Troponin 14.6. * Covid-19 Negative - Patient has Hx of Metastatic Breast Cancer and Infiltrating Ductal Adenocarcinoma, currently receiving chemotherapy * Last treatment 2 weeks ago 05/05 (was to have one yesterday 05/19) * Consulted Dr. Long (patient's oncologist) - Patient receiving IV fluids and antibiotics (Zosyn 4.5 g IV Q8H), blood cultures pending - Patient NPO for procedures, returned to regular as tollerated - Serial CBC w/ diff Abnormal CT/Elevated LFTs/Elevated Bilirubin - Ddx: Viral Infection vs Medication Side Effect vs. Tick Borne Illness vs. Transaminitis vs. Cholangitis vs. Acute Hepatitis - Will evaluate CMV, EBV, and anaplasmosis - Will continue serial evaluations of LFTs, CBC, CMP and physical exam - Surgical Consult - low suspicion for appendicitis, recommended consideration for HIDA and MRCP - HIDA showed no cystic duct obstruction but low GB EF at 31%, MRCP normal w/ splenomegaly - Outpatient Labs: HgB 10.2, Hct 29.2, Na 130, TBili 4.5, AST 93, ALT 68, AlkPhos 221, Albumin 3.3, Pro-Armand 5.27, TSH 0.25 - Inpatient Hepatic Labs * Total Bili: 05/19 4.5 H, 05/20 5.6 H * Direct Bili: 05/19 0.9 H * AST: 05/19 93 H, 05/20 97 H * ALT: 05/19 68 H, 05/20 68 H * Alk Phos: 05/19 221 H, 05/20 182 H * Albumin: 05/19 3.3 L, 05/20 3.0 L Low TSH (Hyperthyroid) - No known hx of hyperthyroidism Elevated HS Troponin - 14.6 H on admission, trended down to 8.5 wnl (2) Elevated bilirubin: (3) Elevated LFTs: (4) Abnormal CT scan: (5) Infiltrating duct adenocarcinoma: Plan FEN: Regular diet DVT ppx: Code: Full Code Dispo: Med/Surg, Tele Admission and Anticipated Discharge Date Admission Date: May 20, 2022 Supervising Physician Co-Signing Physician Notes I personally examined the patient and verified all [place] points of history and exam, discussed case, and agree with decision making with Dr Piper Feeling better than last night. Hungry. Ate well. Less abdominal pain. No fevers. Vitals noted, in general she is awake and alert pleasant no distress. HEENT normocephalic atraumatic mucous membranes moist. Breathing unlabored no accessory muscle use good effort. Abdomen is soft nondistended very minimal right upper quadrant tenderness without guarding rebound or rigidity, very mild left lower abdominal tenderness without guarding rebound or rigidity, no other tenderness. Skin mild icterus. Fever, transaminitis, leukopenia, thrombocytopeniamain differential being a viral illness such as CMV, versus possibly chemo/Keytruda side effects or Keytruda related liver inflammation. We will want to discuss with heme/onc once they have been able to see the patient. Certainly no clear need for steroids at this time given that she is looking and feeling better and a viral etiology is much higher on the differential. Given the overall "pattern recognition" and living [place] she to not improve further, empiric treatment for something tickborne such as anaplasmosis would be reasonable, but seems to be unnecessary at this time. For now, serial exams/serial labs, on empiric antibiotics although may be able to DC fairly soon. Follow inflammatory markers. Otherwise as above, pharmacologic DVT prophylaxis contraindicated due to thrombocytopeniais on SCDs Subjective Micki is a 37 year old female with history of metastatic breast cancer, thrombocytopenia, infiltrating ductal adenocarcinoma (on chemotherapy) who presented for undefined fever and abnormal labs. Patient is being admitted for evaluation of abnormal LFTs and febrile illness. Patient notes that she had a panic attack 05/15 which resulted in emesis, fevers, and chills. Fever's at this time resolved, but returned Thursday when patient began to appear jaundiced (per her friend Micki). Patient's friend noted that she began to appear as though she had a recent chemo treatment, she became red, puffy, lethargic, and had 'yellow-rings' around her eyes. Patient frequently gets fevers the day of/day after her chemotherapy treatments her last treatment was 05/05/22, was intended to receive treatment 05/19 but was sent to the hospital due to labs and fever. She denies known recent illness or sick contacts. No hx of liver disease or jaundice. Today 05/20/22: - Patient denies any chest pain or shortness of breath - Endorses urination and darkening of urine since Thursday - She denies suprapubic pain or dysuria, some improvement of sx with home hydration - Patient notes that she had abdominal pain yesterday that was under her right ribs, but it has since resolved. - She denies abdominal distension and changes in her bowel habits Review of Systems Review of Systems: - No chest pain, palpitations, or shortness of breath - No dyspnea, coughs or lower extremity swelling - No sore throats, sweats, or chills + Nausea and emesis (since Thursday) + Dysuria, decreased frequency, and urgency (improved with home fluids) - No lightheadedness or headaches - No rash Physical Exam Physical Exam: Gen: NAD, fatigued, interactive HEENT: Supple, no LAD, no thyromegaly, no JVD, scleral icterus Resp:Non-labored, no wheezing/rhonchi/rales, CTAB CV:RRR, normal S1/S2, no M/R/G Abd: Soft, non-distended, TTP in RLQ, hypoactive bowels, no masses, Allred sign -, no peritoneal signs Extr: 2+ dp bilaterally, no edema Skin: Diffuse jaundice, no rashes lesions or erythema Results & Data Results & Data ([facility]) Vital Signs (Past 12 Hours) Vital Signs Pulse Resp BP Pulse Ox O2 Del Method 05/20/22 08:59 90 18 99 Room Air 05/20/22 06:44 83 18 102/64 97 Room Air 05/20/22 03:00 84 18 99/66 L 99 Room Air 05/20/22 00:19 90 18 101/59 L 97 Room Air 05/19/22 22:00 97 Room Air 05/19/22 22:00 111 H 19 109/60 98 Room Air Diagnostic Findings CTA Chest 05/20/[address] Head 05/20/22 Negative CTAP 05/20/22 1. There is no evidence of pulmonary embolus in the main, lobar, or segmental pulmonary arteries. 2. There is no airspace consolidation or pleural effusion. 3. The appendix is mildly dilated and mildly thick-walled. No significant surrounding inflammation is identified. Findings are of low suspicion for acute appendicitis; however, this is not completely excluded. If symptoms worsen, localize to the right lower quadrant, or if there is clinical concern for appendicitis a repeat examination with enteric contrast should be considered. 4. Mild splenomegaly. 5. A small volume of free fluid in the cul-de-sac is nonspecific and likely within physiologic limits. 6. There is no evidence of metastatic disease in the chest, abdomen, or pelvis. 7. Additional findings as above. MRCP 05/20/22 1. Normal MRCP. 2. Splenomegaly. HIDA Scan 05/20/22 1. No evidence for cystic duct obstruction. 2. Abnormally low gallbladder ejection fraction calculated to be 31 %. Resident Activity Tracking Resident Involvement: Resident Care Provided Care Provided: Adult [facility]
[2022-05-20] MEDS ORDERED: SODIUM CHLORIDE 0.9% IV SCH (10:00)
[2022-05-20] MEDS ORDERED: SINCALIDE IV SCH (10:00)
[2022-05-20 10:28] LABS: Albumin Globulin Ratio 1.3 (0.9-2); BUN Creatinine Ratio 14.5 (10-20); Bilirubin,Total 5.6 mg/dl (0.2-1.0); Calcium 8.1 mg/dl (8.5-10.1); Creatinine Clr Calc Pharmacy 106.6 ml/min; Est GFR (African American) 116.1 ml/min; Est GFR (Non-African American) 100.2 ml/min; Globulin 2.4 gm/dl (2.5-4.0); Potassium 3.7 mmol/L (3.5-5.1); Total Protein 5.4 gm/dl (6.0-8.3)
[2022-05-20 10:42] LABS: Basophils # (auto) 0.04 K/uL (0-0.2); Basophils % (auto) 1.2 %; Immature Granulocytes # (auto) 0.05 K/uL (0.00-0.02); Immature Granulocytes % (auto) 1.6 %; Lymphocytes # (auto) 0.95 K/uL (1.2-3.4); Lymphocytes % (auto) 29.5 %; Monocytes % (auto) 3.1 %; Neutrophils # (auto) 2.08 K/uL (1.4-6.5); Neutrophils % (auto) 64.6 %
--- NOTE | 2022-05-20 10:43 | Magnetic Resonance Report ---
MRCP CLINICAL HISTORY: Abnormal liver function studies. Right upper quadrant abdominal pain. COMPARISON STUDY: Abdominal ultrasound and CT dated 05/19/2022. TECHNIQUE: Abdominal MRCP is performed utilizing various T2-weighted sequences in the axial and coron al planes. 3-D reformats are created and assessed. IV contrast was not administered for this examinat ion. The examination is degraded by motion artifact. FINDINGS: The gallbladder is normal in appearance. No gallstones are identified. There is no intra or extrahepa tic biliary ductal dilatation. The common bile duct is normal in caliber, measuring up to 4 mm in deidre meter. No intraluminal filling defects are seen to suggest choledocholithiasis. The pancreatic duct i s normal in caliber, and is not well assessed due to motion artifact. The unenhanced liver, pancreas, adrenal glands, and kidneys are grossly unremarkable. The spleen is i n enlarged measuring 14 cm in length. There is no abdominal ascites. The abdominal aorta is normal in caliber. No bowel obstruction is seen. No pleural effusion is identified. There is no evidence of de structive osseous lesion. IMPRESSION: 1. Normal MRCP. 2. Splenomegaly. Dictated: 05/20/2022 9:22 AM Transcribed: 05/20/2022 10:08 AM [place] [id number] [email or web address] Electronically signed by: Rosas May M.D. 05/20/2022 10:42 AM
--- NOTE | 2022-05-20 11:18 | Nuclear Medicine Report ---
NUCLEAR MEDICINE HEPATOBILIARY SCAN WITH EJECTION FRACTION HISTORY: abnormal LFT's, nausea. Vomiting. COMPARISON: MRCP 05/20/2022. TECHNIQUE: Immediately following the intravenous administration of 5.5 mCi Tc-99m Choletec, dynamic a nterior abdominal imaging pre/post 1.5 mcg of Kinevac was performed. FINDINGS: Uniform hepatic tracer accumulation is shown. Prompt intrahepatic biliary excretion is seen. The gall bladder and common bile duct are visualized by 60 minutes. There is slight delayed visualization of t he small bowel which is visualized at 70 minutes. This could represent a normal variant. The gall bladder ejection fraction following administration of Kinevac was 31% (normal >35%). IMPRESSION: 1. No evidence for cystic duct obstruction. 2. Abnormally low gallbladder ejection fraction calculated to be 31 %. ACT 112: Negative or not required by law. Electronically signed by: Stefan Berman M.D. 05/20/2022 11:17 AM
--- NOTE | 2022-05-20 14:48 | Electrocardiogram Report ---
Test Reason : Blood Pressure : / mmHG Vent. Rate : 115 BPM Atrial Rate : 115 BPM P-R Int : 128 ms QRS Dur : 076 ms QT Int : 300 ms P-R-T Axes : 044 032 020 degrees QTc Int : 415 ms Sinus tachycardia Nonspecific T wave abnormality Abnormal ECG No previous ECGs available Confirmed by Alden Petersen ([id number]) on 05/20/2022 2:48:17 PM Referred By: Graciela Long Confirmed By:Alden Petersen
--- NOTE | 2022-05-20 14:48 | Surgery Progress Note ---
Date of Service May 20, 2022 Assessment & Plan (1) Elevated bilirubin: Plan: Patient is sitting in bed ordering her dinner She is hungry and having no abdominal pain Her affect is very upbeat and normal Her HIDA scan showed filling of the gallbladder which is already contracted and an ejection fraction of 31% Is not surprising-there is no plan to perform cholecystectomy in this patient at this time It does not appear she has acute appendicitis Continue supportive care-she seems to be doing much better than last night Admission and Anticipated Discharge Date Admission Date: May 20, 2022 Subjective See assessment and plan Results & Data ([facility]) Vital Signs (Past 12 Hours) Vital Signs Temp Pulse Pulse Resp BP Pulse Ox O2 Del Method 05/20/22 11:53 81 05/20/22 11:22 36.6 C 90 18 110/78 98 Room Air 05/20/22 08:59 90 18 99 Room Air 05/20/22 06:44 83 18 102/64 97 Room Air 05/20/22 03:00 84 18 99/66 L 99 Room Air PG Care Time/CCT Total # of Minutes Spent Total Time Spent with Patient: Total time spent is greater than 50% in coordination of care (as documented) at patient's floor/unit and/or counseling patient: Coding Level of Care Code None Diagnoses Elevated bilirubin R17
[2022-05-20] MEDS ORDERED: HEPARIN 100 UNIT/ML 5ML FLUSH FLUSH PRN (23:45)
[2022-05-21 02:19] VITALS: TEMP 97.7
[2022-05-21] MEDS: PIPERACILLIN/TAZOBACTAM 3.375 GM in DEXTROSE 5% 100 ML IV SCH (06:05)
--- NOTE | 2022-05-21 07:14 | Hospitalist Progress Note ---
Date of Service May 21, 2022 Assessment & Plan (1) Febrile illness, acute: Plan: Micki is a 37 year old female with history of metastatic breast cancer, thrombocytopenia, infiltrating ductal adenocarcinoma (on chemotherapy) who presented for undefined fever and abnormal labs. Patient is being admitted for evaluation of abnormal LFTs and febrile illness. Acute Febrile Illness (Tmax 39.1C) in setting of immunocompromised patient - Patient presented from oncology office with fever and abnormal labs * Outpatient Labs: HgB 10.2, Hct 29.2, Na 130, TBili 4.5, AST 93, ALT 68, AlkPhos 221, Albumin 3.3, Pro-Armand 5.27, TSH 0.25 * Troponin 14.6. * Covid-19 Negative - Patient has Hx of Metastatic Breast Cancer and Infiltrating Ductal Adenocarcinoma, currently receiving chemotherapy * Last treatment 2 weeks ago 05/05 (was to have one yesterday 05/19) * Consulted Dr. Long (patient's oncologist) - Patient receiving IV fluids and antibiotics (Zosyn 4.5 g IV Q8H), blood cultures pending - Patient NPO for procedures, returned to regular as tollerated - Serial CBC w/ diff Abnormal CT/Elevated LFTs/Elevated Bilirubin - Ddx: Viral Infection vs Medication Side Effect vs. Tick Borne Illness vs. Transaminitis vs. Cholangitis vs. Acute Hepatitis - Will evaluate CMV, EBV, and anaplasmosis - Will continue serial evaluations of LFTs, CBC, CMP and physical exam - Surgical Consult - low suspicion for appendicitis, recommended consideration for HIDA and MRCP - HIDA showed no cystic duct obstruction but low GB EF at 31%, MRCP normal w/ splenomegaly - Outpatient Labs: HgB 10.2, Hct 29.2, Na 130, TBili 4.5, AST 93, ALT 68, AlkPhos 221, Albumin 3.3, Pro-Armand 5.27, TSH 0.25 - Inpatient Hepatic Labs * Total Bili: 05/19 4.5 H, 05/20 5.6 H * Direct Bili: 05/19 0.9 H * AST: 05/19 93 H, 05/20 97 H * ALT: 05/19 68 H, 05/20 68 H * Alk Phos: 05/19 221 H, 05/20 182 H * Albumin: 05/19 3.3 L, 05/20 3.0 L Low TSH (Hyperthyroid) - No known hx of hyperthyroidism Elevated HS Troponin - 14.6 H on admission, trended down to 8.5 wnl (2) Elevated bilirubin: (3) Elevated LFTs: (4) Abnormal CT scan: (5) Infiltrating duct adenocarcinoma: Plan FEN: Regular diet DVT ppx: Code: Full Code Dispo: Med/Surg, Tele Admission and Anticipated Discharge Date Admission Date: May 20, 2022 Subjective Micki is a 37 year old female with history of metastatic breast cancer, thrombocytopenia, infiltrating ductal adenocarcinoma (on chemotherapy) who presented for undefined fever and abnormal labs. Patient is being admitted for evaluation of abnormal LFTs and febrile illness. Patient notes that she had a panic attack 05/15 which resulted in emesis, fevers, and chills. Fever's at this time resolved, but returned Thursday when patient began to appear jaundiced (per her friend Micki). Patient's friend noted that she began to appear as though she had a recent chemo treatment, she became red, puffy, lethargic, and had 'yellow-rings' around her eyes. Patient frequently gets fevers the day of/day after her chemotherapy treatments her last treatment was 05/05/22, was intended to receive treatment 05/19 but was sent to the hospital due to labs and fever. She denies known recent illness or sick contacts. No hx of liver disease or jaundice. Today 05/21/22: - Patient notes that she is feeling well, but notices that 'she is still yellow' - She denies any fevers, shortness of breath, or chest pain - She endorses mild RUQ/R Lower Rib pain that has been ongoing since yesterday afternoon - She denies abdominal distension or change in bowel/bladder habits Review of Systems Review of Systems: See HPI Physical Exam Physical Exam: Gen: NAD, fatigued, interactive HEENT: Supple, no LAD, no thyromegaly, no JVD, scleral icterus Resp:Non-labored, no wheezing/rhonchi/rales, CTAB CV:RRR, normal S1/S2, no M/R/G Abd: Soft, non-distended, no TTP, hypoactive bowels, no masses, Allred sign -, no peritoneal signs Extr: 2+ dp bilaterally, no edema Skin: Diffuse jaundice, no rashes lesions or erythema Results & Data Results & Data ([facility]) Vital Signs (Past 12 Hours) Vital Signs Temp Pulse Pulse Resp BP Pulse Ox O2 Del Method 05/21/22 02:18 36.5 C 93 H 18 122/79 99 Room Air 05/20/22 22:16 88 05/20/22 22:43 36.7 C 76 18 120/80 99 Room Air 05/20/22 19:42 36.5 C 82 18 114/63 99 Room Air
--- NOTE | 2022-05-21 07:38 | Surgery Progress Note ---
Date of Service May 21, 2022 Assessment & Plan (1) Febrile illness, acute: Plan: I do not think the patient has acute cholecystitis or acute appendicitis requiring surgical intervention Continue with diet as tolerated Would continue empiric antibiotics Continue to follow Admission and Anticipated Discharge Date Admission Date: May 20, 2022 Subjective Patient is afebrile her vital signs are stable She is awake and alert in no distress with a very upbeat affect Has some discomfort to palpation of her right lateral chest wall/abdomen Review of Systems Review of Systems: All systems reviewed & are unremarkable except as noted in HPI & below Physical Exam Physical Exam: Patient's abdomen is soft and nontender Mild discomfort to palpation lateral right upper quadrant chest wall area Constitutional: no acute distress Mildly ill-appearing but good affect Eyes: + anicteric sclerae Respiratory: normal respiratory effort; no respiratory distress Cardiovascular: Rate/Rhythm: regular rate Gastrointestinal (Abdomen): Percussion/Palpation: abdomen soft Musculoskeletal: Gait: normal gait Skin: no rashes, warm and dry Neurologic: awake Psychiatric: Orientation: alert Results & Data ([facility]) Vital Signs (Past 12 Hours) Vital Signs Temp Pulse Pulse Resp BP Pulse Ox O2 Del Method 05/21/22 07:25 65 05/21/22 02:18 36.5 C 93 H 18 122/79 99 Room Air 05/20/22 22:16 88 05/20/22 22:43 36.7 C 76 18 120/80 99 Room Air 05/20/22 19:42 36.5 C 82 18 114/63 99 Room Air PG Care Time/CCT Total # of Minutes Spent Total Time Spent with Patient: Total time spent is greater than 50% in coordination of care (as documented) at patient's floor/unit and/or counseling patient: Coding Level of Care Code 21911 Inpt Consult Level 2 Diagnoses Febrile illness, acute R50.9
[2022-05-21 07:58] LABS: Hematocrit (blood only) 28.8 % (34.1-44.9); Hemoglobin 9.8 g/dl (12.0-16.0); Mean Corpuscular Hemoglobin 31.8 pg (25.0-34.0); Mean Corpuscular Volume 93.5 fL (80.0-100.0); Mean Platelet Volume 10.7 fL (9.4-12.3); Platelet Count 48 K/uL (130-400); RDW Coefficient of Variation 13.6 % (11.5-14.5); RDW Standard Deviation 46.5 fL (36.4-46.3); Red Blood Count 3.08 M/uL (3.93-5.22); White Blood Count 2.67 K/ul (4.8-10.8)
[2022-05-21 08:34] LABS: Albumin Globulin Ratio 1.1 (0.9-2); Albumin Level 3.2 gm/dl (3.4-5.0); BUN Creatinine Ratio 13.8 (10-20); Bilirubin,Total 4.5 mg/dl (0.2-1.0); C Reactive Protein 5.87 mg/dl (0-0.5); Calcium 8.3 mg/dl (8.5-10.1); Est GFR (African American) 136.5 ml/min; Est GFR (Non-African American) 117.8 ml/min; Globulin 2.8 gm/dl (2.5-4.0); Potassium 3.9 mmol/L (3.5-5.1)
[2022-05-21 08:46] LABS: Basophils # (auto) 0.02 K/uL (0-0.2); Basophils % (auto) 0.7 %; Eosinophils # (auto) 0.03 K/uL (0-0.50); Eosinophils % (auto) 1.1 %; Immature Granulocytes # (auto) 0.01 K/uL (0.00-0.02); Immature Granulocytes % (auto) 0.4 %; Lymphocytes # (auto) 1.87 K/uL (1.2-3.4); Monocytes # (auto) 0.18 K/uL (0.24-0.82); Monocytes % (auto) 6.7 %; Neutrophils # (auto) 0.56 K/uL (1.4-6.5); Neutrophils % (auto) 21.1 %
[2022-05-21] MEDS ORDERED: FILGRASTIM 480 MCG/1.6 ML VIAL SQ ONE (09:30)
[2022-05-21] MEDS ORDERED: LORATADINE 10 MG TAB PO ONE (10:45)
[2022-05-21 11:46] VITALS: O2SAT 100
[2022-05-21 12:12] VITALS: BP 122/79; PULSE 93
--- NOTE | 2022-05-21 12:19 | Discharge Summary ---
Date of Service May 21, 2022 Admission HPI Per Admitting Provider The patient is a 37-year-old female with a past medical history including metastatic breast cancer, thrombocytopenia, history of COVID-19 viral infection, infiltrating ductal adenocarcinoma, undergoing chemotherapy. She presents to the emergency department signs and symptoms as noted above. Upon arrival patient was noted to be febrile, with temperature 39.1. Significant abnormal laboratories: Hemoglobin 10.2, hematocrit 29.2, sodium 130, total bilirubin 4.5, AST 93, ALT 68, alkaline phosphatase 221, albumin 3.3, Pro- Armand 5.27, TSH 0.254 and troponin 14.6. COVID-19 testing was negative. Anaplasmosis and babesiosis smears are both negative, with antibodies pending. CTA chest PE protocol negative. CT head without contrast negative CT scan abdomen and pelvis with contrast: Hepatic steatosis. Splenomegaly. Dec ompressed gallbladder. The appendix is prominent measuring 10.8 mm in maximal diameter with mild inflammation of surrounding fat, recommending correlation with right lower quadrant pain. There is a small amount of free fluid in the pelvic cul-de-sac. 34 x 32 mm left ovarian cyst. Prominent bilateral inguinal lymph nodes From the ED, the patient has received the following: Normal saline 1 L, Tylenol 1 g p.o., LR 1 L, NSS 500 mils, and Zosyn 4.5 g IV Admission Exam Per Admitting Provider The patient is awake, alert and oriented 3, well developed and well nourished, normocephalic and atraumatic, lying in bed and in no acute distress. HEENT--PERRL, EOMI, mucous membranes and oropharynx dry. Neck--supple. No JVD. No bruits. Thyroid normal, trachea midline, no adenopathy. Heart--normal S1 and S2. No murmurs, rubs or gallops. Lungs--clear bilaterally, no respiratory distress, no accessory muscle use. Abdomen--normal bowel sounds and soft. Nontender. Nondistended. Extremities--no cyanosis or clubbing. No edema. Dermatologic--normal skin turgor, normal color, no abnormal lymph nodes, no rash. Neurologic--cranial nerves II through XII grossly intact. Rheumatologic--normal range of motion. Psychiatric--normal affect. Principal Diagnosis Febrile Illness (likely 2/2 Viral Infection) Discharge Exam Gen: NAD, fatigued, interactive HEENT: Supple, no LAD, no thyromegaly, no JVD,scleral icterus Resp:Non-labored, no wheezing/rhonchi/rales, CTAB CV:RRR, normal S1/S2, no M/R/G Abd: Soft, non-distended,no TTP, hypoactive bowels, no masses, Allred sign -, no peritoneal signs Extr: 2+ dp bilaterally, no edema Skin: Diffusejaundice, no rashes lesions or erythema Discharge Data Allergies Allergy/AdvReac Type Severity Reaction Status Date / Time bee pollen Allergy Intermediate Verified 05/20/22 06:54 cat dander Allergy Mild Verified 05/20/22 06:54 Consultations 05/20/22 01:24 ED Decision to Admit Stat 05/20/22 04:47 Consult Hematology Routine Ordered Studies 05/19/22 20:49 CT Abd and Pelvis [CT abd pelvis IV con only] Urgent 05/19/22 20:57 CT angio chest PE protocol Urgent CT head/brain wo con Urgent 05/20/22 02:53 MR MRCP Stat Hospital Course (1) Febrile illness, acute: Acute Febrile Illness (Tmax 39.1C) in setting of immunocompromised patient - Patient presented from oncology office with fever and abnormal labs * Outpatient Labs: HgB 10.2, Hct 29.2, Na 130, TBili 4.5, AST 93, ALT 68, AlkPhos 221, Albumin 3.3, Pro-Armand 5.27, TSH 0.25 * Covid-19 Neg * Pt. has Hx of Metastatic Breast Cancer and Infiltrating Ductal Adenocarcinoma * Currently receiving chemotherapy, last treatment 2 weeks ago 05/05 (was to have one yesterday 05/19) * Consulted patient's oncologist who has low suspicion for medication side effect * Patient received IV fluids and antibiotics (Zosyn 4.5 g IV Q8H), will send home with Augmentin * Blood cultures NG @ 24h Abnormal CT/Elevated LFTs/Elevated Bilirubin - Ddx: Viral Infection vs Medication Side Effect vs. Tick Borne Illness vs. Transaminitis vs. Cholangitis vs. Acute Hepatitis - Most likely etiology Viral Infection - Will evaluate CMV, EBV, and anaplasmosis (pending results outpatient) - Recommend continued following of CBC and CMP - Surgical Consult - low suspicion for appendix or gall bladder etiology - HIDA showed no cystic duct obstruction but low GB EF at 31%, MRCP normal w/ splenomegaly - Outpatient Labs: HgB 10.2, Hct 29.2, Na 130, TBili 4.5, AST 93, ALT 68, AlkPhos 221, Albumin 3.3, Pro-Armand 5.27, TSH 0.25 - Inpatient Hepatic Labs - recommend outpatient follow up of CBC and CMP * Total Bili: 05/19 4.5 H, 05/20 5.6 H, 05/21 4.5 * Direct Bili: 05/19 0.9 H * AST: 05/19 93 H, 05/20 97 H, 05/21 76 H * ALT: 05/19 68 H, 05/20 68 H, 05/21 80 H * Alk Phos: 05/19 221 H, 05/20 182 H, 05/21 208 H * Albumin: 05/19 3.3 L, 05/20 3.0 L, 05/21 3.2 L Low TSH (Hyperthyroid) - No known hx of hyperthyroidism Elevated HS Troponin - 14.6 H on admission, trended down to 8.5 wnl (2) Elevated bilirubin: (3) Elevated LFTs: (4) Abnormal CT scan: (5) Infiltrating duct adenocarcinoma: Plan Discharge to home Total Time Total Time Spent Total Time Spent (In Minutes): >30 Discharge Plan Discharge Items Patient Disposition: Home - Self-Care Reason For Visit: FEBRILE ILLNESS, ELEV TROPONIN, ABN LFT'S, IMMUNOC Discharge Diagnosis: Febrile Illness (2/2 Viral Etiology) Condition on Discharge: Good Activity: Resume your previous activity Bathing: No limitations Sexual Activity: When tolerated Exercise/Sports: Gradually increase as tolerated Weightbearing: Full weightbearing Non-emergency contact: Primary Care Provider Call non-emergency contact if: your symptoms worsen, your pain is unusual for you and you have a fever Follow-up/Referrals: Madeline Lujan MD [Primary Care Provider] - 05/28/22 11:30 am Diet: Regular Fluids: 2000ml (8 cups) Addtl Attending Provider Instructions: You were admitted to the hospital for a fever and abnormal labs. You were placed on antibiotics while you were here, we ran some additional tests, and spoke with your oncologist. We ultimately determined that a viral illness was the most likely cause of your fever and abnormal labs. A discharge summary will be sent to your primary care physician to ensure continuity of care. Please bring this discharge summary with you to your next office appointment so that your provider can review it at that time. Follow-up appointments: - Make a follow-up appointment with your PCP within the next week. It is very important that you follow up with them shortly after discharge from the hospital. We have requested a follow-up appointment with your primary care physician within one week of discharge. Please call their office if you do not hear from them. - Have your labs evaluated (CBC and CMP) within one week of discharge, as we discussed, you may do them Thursday. Medications: - Your medication list has been reviewed and reconciled upon discharge to ensure accuracy and continuity of care. An updated list of all your medications is included with your hospital discharge paperwork. Please review this list closely, and make note of any changes. - Augmentin was added to your medication list. Please take Augmentin 875 mg twice daily for 7 days. - Call your primary care provider before taking any new medicines (including over- the-counter medicines, vitamins, and supplements), because some of these may interact with your current medications, or may make your symptoms worse. Contact your Primary Care Provider if you experience: - Return of fatigue - Worsening abdominal pain - Difficulty following your treatment plan or taking medications Call 911 or go to the emergency department if you experience: - Fever - Sudden, severe abdominal pain or nausea/vomiting - Severe chest pain, or chest pain that radiates (moves) to your jaw or arm - Sudden, severe shortness of breath or difficulty breathing It was a pleasure to be a part of your care, Dr. Mendez Piper Pending Studies at Discharge: No Stand-Alone Forms: [facility], Smoking Cessation Medications and DC Order Prescriptions: New amoxicillin-pot clavulanate 875-125 mg tablet 1 tab PO BID Qty: 14 0RF Continued epinephrine [EpiPen 2-Timmy] 0.3 mg/0.3 mL auto-injector 0.3 mg IM Q4H PRN (Reason: anaphylaxis) Qty: 1 3RF prochlorperazine maleate [Compazine] 5 mg Tablet 5 mg PO BID PRN (Reason: Nausea) ondansetron HCl 4 mg Tablet 4 mg PO Q6H lansoprazole 15 mg Capsule,Delayed Release(Dr/Ec) 15 mg PO DAILY Label Comments: Patient doesnt remember to take everyday Neupogen 300 mcg/0.5 mL Syringe 300 mcg SUBCUT DAILY Discharge Orders: Discharge Order (Routine); Ordered 05/21/22 Ordered By: Mendez Piper Admission Data Admit Date/Time: 05/20/22 02:56 Attending Provider: Joce Orozco Admit Provider: Dharmesh Jackson Primary Care Provider: Madeline Lujan Other Providers: Dharmesh Jackson ; Graciela Long Other Interventions: Discharge Summary Assessment (RN) Last Done: 05/21/22 12:11 Supervising Physician Co-Signing Physician Notes I personally examined the patient and verified all [place] points of history and exam, discussed case, and agree with decision making with Dr Piper No further fevers, feels good overall, would like to go home. Vitals noted, in general she is awake and alert pleasant no distress. HEENT normocephalic atraumatic mucous membranes moist. Breathing unlabored no accessory muscle use good effort. Abdomen is soft nondistended very minimal right upper quadrant tenderness without guarding rebound or rigidity, very mild left lower abdominal tenderness without guarding rebound or rigidity, no other tenderness. Skin mild icterus, but seems less than yesterday Fever, transaminitis, leukopenia, thrombocytopeniamain differential being a viral illness such as CMV, and the fact that she is getting better corroborates this. That said with her neutropenia, have to account for potential for bacterial infectionhence home on a course of empiric antibiotics. Given filgrastim at heme-onc recommendation. Labs in 2 days, close outpatient follow- up. Stable for home otherwise. Otherwise as above, pharmacologic DVT prophylaxis was contraindicated due to thrombocytopenia-had SCDs Resident Activity Tracking Resident Involvement: Resident Care Provided Care Provided: Adult Hospital Medicine
--- NOTE | 2022-05-21 15:03 | Consultation Report ---
DATE OF CONSULT: 05/21/2022. REASON FOR CONSULTATION: History of breast cancer with acute febrile illness. HISTORY OF PRESENT ILLNESS: The patient is a very pleasant 37-year-old female known to me at [facility] who has a history of triple negative, stage IIA, left breast cancer for which she started neoadjuvant [facility] therapy with carboplatin/Taxol/Keytruda on 01/20/2022. She most recently received chemotherap y treatment on 05/05/2022. The patient presented to Oncology Clinic for followup on 05/19/2022 and a t that time, labs had revealed elevated alkaline phosphatase of 200 with elevated total bilirubin of 2.9 and slightly elevated ALT of 61 with AST of 40. At that time, abdominal ultrasound was obtained, which was unremarkable except for hemangiomas. The patient called later in the day complaining of f ever and generalized weakness for which she was advised to present to the ER. On arrival at the ER, significant laboratory studies obtained at that time was significant for worsening in LFTs with AST o f 93, ALT of 68, total bilirubin of 4.5 and alkaline phosphatase of 221. She was subsequently admitt ed to the hospital and had abdominal imaging including CT abdomen and pelvis which revealed mildly di lated and mildly thick walled appendix with low suspicion for acute appendicitis, mild splenomegaly a nd nonspecific small volume of free fluid in the cul-de-sac. CTA chest, also obtained on 05/19/2022 was negative for PE or any other acute findings. MRI cholangiopancreatography performed on 2 was normal except for splenomegaly. HIDA scan performed on 05/20/2022 revealed no evidence of cyst ic duct obstruction, but revealed abnormally low gallbladder ejection fraction calculated to be 31%. At the time of seeing the patient today, she indicated that she was doing a lot better with improveme nt in her jaundice. Also indicates improvement in the right upper quadrant abdominal discomfort and resolution of fever. She had been evaluated by General Surgery who indicated there was no role for s urgery given low suspicion for acute appendicitis and cholecystitis. ALLERGIES: No known drug allergies. HOME MEDICATIONS: No significant home medications. PAST MEDICAL HISTORY: Breast cancer. PAST SURGICAL HISTORY: Not significant. FAMILY HISTORY: Significant for breast cancer in aunts. SOCIAL HISTORY: Drinks alcohol occasionally. Denies smoking or illicit drug use. REVIEW OF SYSTEMS: Unremarkable except as noted in HPI. PHYSICAL EXAMINATION: Also unremarkable except for scleral icterus. LABORATORY TESTING: Labs obtained today significant for white cell count of 2.67, hemoglobin of 9.8, hematocrit of 28 with platelet count of 48,000 and ANC of 0.56. LFTs significant for AST of 76, ALT 80, alkaline phosphatase 208. CRP 5.87 and total bilirubin of 4.5. IMAGING STUDIES: As above. ASSESSMENT AND PLAN: 1. Abnormal LFTs. 2. History of left breast cancer, on neoadjuvant systemic therapy. 3. Pancytopenia due to chemotherapy/underlying inflammatory/infectious process. A pleasant female known to me at [facility] with stage II breast triple negative breast cancer for which she is currently on neoadjuvant systemic therapy. Presented with fever and worsening LFTs. Clinical co ndition seems to have improved with IV fluids and antibiotics. Labs also did demonstrate stable/impr blanquita liver function tests. Given initial presentation with fever and imaging showing low gallbladder EF, suspect that the patient possibly had underlying infection/gallbladder sludge, which has improve d or resolved. Suspicion for Keytruda-induced hepatitis is very low, given elevated alkaline phospha tase as immunotherapy-induced hepatitis is usually associated with elevated ALT/AST and rarely associ ated with elevated bilirubin. Immunotherapy-induced hepatitis is not usually associated with elevate d alkaline phosphatase. Since the patient is doing better, [facility] We recommend giving a dose of filgrastim 480 mcg x1 prior to discharge. Also, recommend recheck ing labs on Thursday. If labs are significantly better at that time, we would consider treating her as planned next Thursday. If labs are, however, still significantly abnormal, we will have to delay lindsay tment. The patient was given the opportunity to ask questions, which indicated were answered to her satisfaction. Thank you for this consult. Oncology will sign off at this time to see how upon discharge from [facility]. Please feel free to call if you have any further questions. Job ID: [id number]
--- NOTE | 2022-05-21 18:20 | Billing Data ---
Date of Service May 21, 2022 Coding Level of Care Code D/C DAY MANAGEMENT >30 MINS
[2022-05-22 11:02] LABS: HBSAG NON-REACTIVE (NON-REACTIVE); Hepatitis A Antibody IgM NON-REACTIVE (NON-REACTIVE); Hepatitis B Core Antibody IgM NON-REACTIVE (NON-REACTIVE)
[2022-05-22 21:51] LABS: Babesia microti DNA Not Detected (Not Detected)
[2022-05-27 14:01] LABS: CMV IgM Antibody <30.00 AU/mL; EBV Nuclear Ag Antibody >600.00 U/mL; EBV Virus Capsid Ag IgG Ab >750.00 U/mL; Epstein Barr Virus Early Ag Ab 9.06 U/mL
== END 2022-05-21 13:51 | disposition home or self-care (01) | DRG 865 ==
LOC: ED 20:19 → EDINP 05-20 02:56 → SUATTDRO 05-20 02:56 → 2N 05-20 04:45